=== PATIENT | male | born 2000 | race Caucasian/White ===

== ENCOUNTER 2021-01-22 05:51 | Emergency (ER) | payer OTHER ==
[~2021-01-22] VITALS: Ht 172.7 cm; Wt 106.3 kg
[2021-01-22] MEDS ORDERED: ACETAMINOPHEN 500 MG TAB PO ONE (07:35)
[2021-01-22] MEDS ORDERED: KETOROLAC 30 MG/ML 1ML VIAL IM ONE (07:35)
[2021-01-22 08:17] LABS: BASO # 0.1 10^3/uL (0.0-0.2); BASO % 0.5 % (0.0-1.0); EOS # 0.4 10^3/uL (0.0-0.5); EOS % 3.2 % (0.0-3.0); HEMATOCRIT 46.8 % (42.0-52.0); LYMPH # 1.5 10^3/uL (1.5-5.0); LYMPH % 11.3 % (24.0-44.0); MEAN CORPUSCULAR HEMOGLOBIN 29.3 pg (27.0-33.0); MEAN CORPUSCULAR HGB CONC 34.2 g/dl (32.0-36.5); MEAN CORPUSCULAR VOLUME 85.7 fl (80.0-96.0); MONO # 0.8 10^3/uL (0.0-0.8); MONO % 6.1 % (2.0-8.0); NEUTROPHILS # 10.4 10^3/uL (1.5-8.5); NEUTROPHILS % 78.4 % (36.0-66.0); PLATELET COUNT, AUTOMATED 268 10^3/uL (150-450); RED BLOOD COUNT 5.46 10^6/uL (4.30-6.10); WHITE BLOOD COUNT 13.3 10^3/uL (4.0-10.0)
[2021-01-22 08:52] LABS: ERYTHROCYTE SEDIMENTATION RATE 5 mm/hr (0-15)
[2021-01-22] MEDS ORDERED: AUGM875T28 PO (09:11)
[2021-01-22] MEDS ORDERED: IBUP80TA PO (09:11)
[2021-01-22 09:33] VITALS: BP 154/83
== END 2021-01-22 09:35 | disposition home or self-care (01) ==
LOC: M ED 05:51
DX: H66.92 Otitis media, unspecified, left ear (principal); H92.02 Otalgia, left ear; J06.9 Acute upper respiratory infection, unspecified; Z11.52 Encounter for screening for COVID-19; G43.909 Migraine, unspecified, not intractable, without status migrainosus
CPT/HCPCS: 80047; 85025; 85652; 86140; 96372; 99283; J1885; U0003

== ENCOUNTER → 2021-02-04 | Outpatient (REF) ==
[~2021-02-04] MED LIST: AUGM875T28 PO; IBUP80TA PO
--- NOTE | 2021-02-04 10:29 | REP ---
INDICATION: IRON DEFICIENCY ANEMIA, UNSPECIFIED COMPARISON: None. TECHNIQUE: PA and lateral. FINDINGS: The mediastinum and cardiac silhouette are normal. The lung cheng are clear and without acute consolidation, effusion, or pneumothorax. The skeletal structures are intact and normal. IMPRESSION: No acute cardiopulmonary process. <Electronically signed by Jose Dupont > 02/04/21 [id number]
--- NOTE | 2021-02-04 10:42 | REP ---
INDICATION: IRON DEFICIENCY ANEMIA, UNSPECIFIED COMPARISON: None. TECHNIQUE: AP and lateral right tibia/fibula FINDINGS: The osseous structures and joint spaces are intact and normal. There is no evidence for acute fracture or dislocation. Surrounding soft tissues are unremarkable. No subcutaneous emphysema or radiodense foreign body. IMPRESSION: . No acute fracture or dislocation. <Electronically signed by Jose Dupont > 02/04/21 1038
== END ==
LOC: M PLAIMG 09:53
PROVIDERS: ATTEND Internal Medicine
DX: M79.661 Pain in right lower leg (principal); R06.02 Shortness of breath